=== PATIENT | male | born 1975 | race Caucasian/White ===

== ENCOUNTER 2017-10-24 00:22 | Emergency (ER) | payer SELFPAY ==
[~2017-10-24] VITALS: Ht 177.8 cm; Wt 82.0 kg
[2017-10-24] MEDS ORDERED: CEFAZOLIN PMX 1GM/50ML 50 ML IV ONE (00:30)
[2017-10-24] MEDS ORDERED: CEFAZOLIN PMX 1GM/50ML 50 ML ONE (00:46)
[2017-10-24] MEDS ORDERED: LIDOCAINE-MPF 1%, 2ML ONE (01:20)
[2017-10-24] MEDS ORDERED: BACITRACIN ZINC OINT 500U/GM, 0.9 GM ONE (02:07)
[2017-10-24 02:13] VITALS: BP 138/80
[2017-10-24] MEDS ORDERED: OMNIPAQUE 350 MG/ML, 100ML BOTTLE ONE (06:24)
== END 2017-10-24 02:43 | disposition home or self-care (01) ==
LOC: ED 01:50
DX: S01.502A Unspecified open wound of oral cavity, initial encounter (principal); F17.200 Nicotine dependence, unspecified, uncomplicated; X99.9XXA Assault by unspecified sharp object, initial encounter; Y93.89 Activity, other specified; Y99.8 Other external cause status; Y92.410 Unspecified street and highway as the place of occurrence of the external cause
CPT/HCPCS: 70487; 96365; 99284; J0690; Q9967

== ENCOUNTER 2017-12-20 08:18 | Emergency (ER) | payer SELFPAY ==
[~2017-12-20] VITALS: Ht 177.8 cm; Wt 83.1 kg
[2017-12-20 08:36] VITALS: BP 134/74
[2017-12-20] MEDS ORDERED: AZITHROMYCIN 250 MG TABLET ONE (09:26)
[2017-12-20] MEDS ORDERED: CEFTRIAXONE 250 MG ONE (09:26)
[2017-12-20] MEDS ORDERED: CEFTRIAXONE 250 MG IM ONE (09:30)
[2017-12-20] MEDS ORDERED: AZITHROMYCIN 500 MG TABLET PO ONE (09:30)
== END 2017-12-20 09:55 | disposition home or self-care (01) ==
LOC: ED 09:45
DX: H57.13 Ocular pain, bilateral (principal)
CPT/HCPCS: 96372; 99283; J0696